=== PATIENT | male | born 1965 | race Caucasian/White ===

== ENCOUNTER → 2016-07-27 | Outpatient (CLI) | payer BC ==
[~2016-07-27] MED LIST: no home meds
== END | disposition home or self-care (01) ==
LOC: CDC 15:05
DX: R00.1 Bradycardia, unspecified (principal)
CPT/HCPCS: 93000

== ENCOUNTER 2016-08-04 06:23 | Day surgery (SDC) | payer BC ==
[~2016-08-04] VITALS: Ht 177.8 cm; Wt 90.9 kg
[2016-08-04 06:59] VITALS: BP 114/79
[2016-08-04] MEDS ORDERED: COLACE100 MG PO (11:37)
[2016-08-04] MEDS ORDERED: PERCOCET 5/31 TABLET PO (11:37)
[2016-08-04 12:30] VITALS: BP 118/69
[2016-08-04 13:20] VITALS: BP 124/72
[2016-08-04 14:46] VITALS: BP 122/64
== END 2016-08-04 14:55 | disposition home or self-care (01) ==
LOC: SDC 06:23
PROC: 0YUA4JZ Supplement Bilateral Inguinal Region with Synthetic Substitute, Percutaneous Endoscopic Approach (ICD-10-PCS; principal; 2016-08-04)
DX: K40.90 Unilateral inguinal hernia, without obstruction or gangrene, not specified as recurrent (principal); D17.6 Benign lipomatous neoplasm of spermatic cord; K40.20 Bilateral inguinal hernia, without obstruction or gangrene, not specified as recurrent; R00.1 Bradycardia, unspecified; E80.4 Gilbert syndrome; E78.5 Hyperlipidemia, unspecified
CPT/HCPCS: 88304; C1727; C1781; J0690; J1100; J1170; J2250; J2710; J3010